=== PATIENT | female | born 1960 | race Caucasian/White ===

== ENCOUNTER 2025-05-13 19:57 | Emergency (ER) | payer BC ==
[~2025-05-13] VITALS: Ht 167.6 cm; Wt 130.6 kg
[2025-05-13] MEDS ORDERED: ZESTRIL10 M1 (21:14)
[2025-05-13] MEDS ORDERED: METFORMIN HCL500 M3 (21:15)
[2025-05-13] MEDS ORDERED: MOUNJARO2.5 MG/0.5 (21:16)
[2025-05-13] MEDS ORDERED: NASAL MIST126 ML (21:16)
[2025-05-13] MEDS ORDERED: TIROSINT13 MCG (21:16)
[2025-05-13 21:17] VITALS: BP 122/86; O2SAT 98
[2025-05-13] MEDS ORDERED: SULFAMETHOXAZOLE/TRIMETHOPRIM DS 1 TAB PO ONE (22:00)
[2025-05-13] MEDS ORDERED: PHENAZOPYRIDINE HCL 100 MG TABLET PO ONE (22:00)
[2025-05-13] MEDS ORDERED: PEPCID AC20 MG PO (22:38)
[2025-05-13] MEDS ORDERED: PYRIDIUM DS200 MG PO (22:38)
[2025-05-13] MEDS ORDERED: BACTRIM DS TAB1 EACH PO (22:38)
== END 2025-05-13 22:43 | disposition home or self-care (01) ==
LOC: ER 19:58
DX: N39.0 Urinary tract infection, site not specified (principal); I10 Essential (primary) hypertension; E11.9 Type 2 diabetes mellitus without complications; Z79.84 Long term (current) use of oral hypoglycemic drugs; Z88.0 Allergy status to penicillin; Z91.013 Allergy to seafood; Z91.018 Allergy to other foods